=== PATIENT | female | born 1945 | race Caucasian/White ===

== ENCOUNTER → 2016-11-12 | Outpatient (CLI) | payer OTHER | LOC: FIMAGING 12:28 | DX: Z12.31 Encounter for screening mammogram for malignant neoplasm of breast (principal); Z85.3 Personal history of malignant neoplasm of breast; Z80.3 Family history of malignant neoplasm of breast | CPT/HCPCS: G0202 ==

== ENCOUNTER → 2017-03-03 | Outpatient (CLI) | payer OTHER | LOC: BMCIMAGING 09:56 | PROVIDERS: ATTEND Internal Medicine Rheumatology | DX: M05.741 Rheumatoid arthritis with rheumatoid factor of right hand without organ or systems involvement (principal) ==

== ENCOUNTER → 2017-11-11 | Outpatient (CLI) | payer OTHER | LOC: BMCIMAGING 12:34 | PROVIDERS: ATTEND Internal Medicine Rheumatology | DX: M25.551 Pain in right hip (principal); M25.552 Pain in left hip ==

== ENCOUNTER → 2017-11-22 | Outpatient (CLI) | payer OTHER | LOC: FIMAGING 14:20 | PROVIDERS: ATTEND Internal Medicine | DX: Z12.31 Encounter for screening mammogram for malignant neoplasm of breast (principal); Z85.3 Personal history of malignant neoplasm of breast; Z80.3 Family history of malignant neoplasm of breast ==

== ENCOUNTER → 2018-02-23 | Outpatient (CLI) | payer OTHER | LOC: BMCIMAGING 11:23 → EDSTATUS 11:24 | PROVIDERS: ATTEND Internal Medicine Rheumatology | DX: M19.042 Primary osteoarthritis, left hand (principal); M19.041 Primary osteoarthritis, right hand ==

== ENCOUNTER → 2018-07-07 | Outpatient (CLI) | payer OTHER ==
[~2018-07-07] MED LIST: GADOBUTROL 10 ML VIAL IVP ONE
== END ==
LOC: FIMAGING 10:08
PROVIDERS: ATTEND Internal Medicine
DX: R90.82 White matter disease, unspecified (principal); J32.3 Chronic sphenoidal sinusitis
CPT/HCPCS: 70553; A9585; 82565-PO

== ENCOUNTER → 2018-07-26 | Outpatient (CLI) | payer OTHER | LOC: BMCIMAGING 11:33 | PROVIDERS: ATTEND Internal Medicine Rheumatology | DX: S13.170A Subluxation of C6/C7 cervical vertebrae, initial encounter (principal); M46.92 Unspecified inflammatory spondylopathy, cervical region ==

== ENCOUNTER → 2018-11-09 | Outpatient (CLI) | payer OTHER | LOC: BMCIMAGING 10:15 | PROVIDERS: ATTEND Internal Medicine Rheumatology | DX: M84.374D Stress fracture, right foot, subsequent encounter for fracture with routine healing (principal) ==

== ENCOUNTER → 2018-12-01 | Outpatient (CLI) | payer OTHER | LOC: FIMAGING 11:44 | PROVIDERS: ATTEND Internal Medicine | DX: Z12.31 Encounter for screening mammogram for malignant neoplasm of breast (principal); Z85.3 Personal history of malignant neoplasm of breast; Z80.3 Family history of malignant neoplasm of breast ==